=== PATIENT | female | born 1955 | race Caucasian/White ===

== ENCOUNTER 2016-06-28 14:04 | Inpatient (IN) | payer OTHER ==
[~2016-06-28] VITALS: Ht 152.4 cm; Wt 50.3 kg
[2016-06-28 15:28] LABS: HEMATOCRIT 34.7 % (36.0-46.0); MCH 29.4 PG (29.0-34.0); MCHC 33.7 G/DL (30.0-36.0); MCV 87.2 FL (83-99); MEAN PLAT.VOLUME 8.7 uM^3 (9.5-12.4); PLATELET COUNT 436 K/uL (156-360); RBC DIS.WIDTH-CV 12.1 % (11.8-14.6); RBC DIS.WIDTH-SD 37.5 % (39-53); RED BLOOD COUNT 3.98 M/uL (3.80-5.20); WHITE BLOOD COUNT 19.5 K/uL (4.1-10.2)
[2016-06-28 15:36] LABS: CHLORIDE 103 mEq/L (99-109); POTASSIUM 4.7 mEq/L (3.7-5.4); SODIUM 138 mEq/L (136-147)
[2016-06-28 15:38] LABS: GLUCOSE 186 mg/dL (70-99)
[2016-06-28 15:39] LABS: ANION GAP 14 MEQ/L (2-14)
[2016-06-28 15:40] LABS: TOTAL BILIRUBIN 0.3 mg/dL (0.0-1.0)
[2016-06-28 15:42] LABS: ALKALINE PHOSPHATASE 306 IU/L (3-129); GFR ESTIMATE (CALCULATED) 44 mL/min/
[2016-06-28 15:43] LABS: UREA NITROGEN (BUN) 31 mg/dL (9-23)
[2016-06-28 16:27] LABS: ADD MIUA? YES; BILIRUBIN SMALL; BLOOD NEGATIVE; COLOR YELLOW ((YELLOW)); GLUCOSE (STRIP) NEGATIVE; KETONES TRACE; LEUKOCYTES LARGE; NITRITE NEGATIVE; PROTEIN (STRIP) 30; SPECIFIC GRAVITY 1.021 (1.000-1.030); UROBILINOGEN 0.2 MG/DL (0.2-1.0)
[2016-06-28 17:19] LABS: AMORPHOUS URATES CRYSTALS RARE; BACTERIA 2+; CASTS PRESENT /LPF; CRYSTALS PRESENT; EPITHELIAL CELLS 1+; HYALINE CASTS 0-5 /LPF; MUCUS NONE SEEN; RED BLOOD CELLS 0-5 /HPF (0-5); UCUL ADDED? YES
[2016-06-28 17:35] LABS: TROP-I INTERPRETATION NEGATIVE; TROPONIN-I < 0.01 ng/mL (0.0-0.30)
[2016-06-28] MEDS ORDERED: PRILOSEC OTC20 MG PO (19:46)
[2016-06-28] MEDS ORDERED: CHOLESTEROL PO (19:46)
[2016-06-28] MEDS ORDERED: BLOOD PRESSURE PO (19:46)
[2016-06-28] MEDS ORDERED: METFORMIN HCL500 MG PO (19:46)
[2016-06-28] MEDS ORDERED: DIABETES MED PO (19:47)
[2016-06-28] MEDS ORDERED: TYLENOL EXTRA500 MG PO (19:47)
[2016-06-28 23:09] LABS: POINT-OF-CARE METER ID UU13113747
[2016-06-29 06:32] LABS: HEMATOCRIT 30.6 % (36.0-46.0); MCHC 33.3 G/DL (30.0-36.0); MCV 86.9 FL (83-99); MEAN PLAT.VOLUME 8.9 uM^3 (9.5-12.4); PLATELET COUNT 389 K/uL (156-360); RBC DIS.WIDTH-CV 12.3 % (11.8-14.6); RBC DIS.WIDTH-SD 37.6 % (39-53); RED BLOOD COUNT 3.52 M/uL (3.80-5.20); WHITE BLOOD COUNT 13.7 K/uL (4.1-10.2)
[2016-06-29 06:42] LABS: EOSINOPHIL (%) 5.5 % (0-5); EOSINOPHIL COUNT 0.8 K/uL (0-0.3); IMMATURE GRANULOCYTE (%) 0.2 % (0.0-0.7); IMMATURE GRANULOCYTE COUNT 0.3 K/uL; LYMPHOCYTE COUNT 1.9 K/uL (1.0-2.8); MONOCYTE (%) 7.9 % (3-12); MONOCYTE COUNT 1.1 K/uL (0-0.8); NEUTROPHIL (%) 72.1 % (45-76); NEUTROPHIL COUNT 9.9 K/uL (1.8-6.4)
[2016-06-29 06:47] LABS: CHLORIDE 104 mEq/L (99-109); POTASSIUM 4.9 mEq/L (3.7-5.4); SODIUM 139 mEq/L (136-147)
[2016-06-29 06:48] LABS: GLUCOSE 123 mg/dL (70-99)
[2016-06-29 06:50] LABS: ANION GAP 13 MEQ/L (2-14)
[2016-06-29 06:52] LABS: GFR ESTIMATE (CALCULATED) > 59 mL/min/
[2016-06-29 06:53] LABS: UREA NITROGEN (BUN) 32 mg/dL (9-23)
[2016-06-29] MEDS ORDERED: ZESTORETIC 20-1 EAC1 PO (09:22)
[2016-06-29] MEDS ORDERED: GLIMEPIRIDE2 MG PO (09:23)
[2016-06-29] MEDS ORDERED: LIPITOR80 MG PO (09:23)
[2016-06-29 09:30] LABS: INTER. NORMALIZED RATIO 1.2; PROTHROMBIN TIME 11.9 (9.2-11.2); PTT 31.4 (25-32)
[2016-06-29 09:30] LABS: POINT-OF-CARE METER ID UU14100415
[2016-06-29 18:30] VITALS: BP 101/42
[2016-06-29 19:37] VITALS: BP 103/49
[2016-06-29 22:44] LABS: POINT-OF-CARE METER ID UU13113725
[2016-06-30 00:21] VITALS: BP 106/54
[2016-06-30 07:14] LABS: HEMATOCRIT 31.9 % (36.0-46.0); MCH 28.1 PG (29.0-34.0); MCHC 32.3 G/DL (30.0-36.0); MCV 87.2 FL (83-99); MEAN PLAT.VOLUME 8.9 uM^3 (9.5-12.4); PLATELET COUNT 366 K/uL (156-360); RBC DIS.WIDTH-CV 12.5 % (11.8-14.6); RED BLOOD COUNT 3.66 M/uL (3.80-5.20); WHITE BLOOD COUNT 12.9 K/uL (4.1-10.2)
[2016-06-30 07:23] LABS: EOSINOPHIL (%) 6.2 % (0-5); EOSINOPHIL COUNT 0.8 K/uL (0-0.3); IMMATURE GRANULOCYTE (%) 0.3 % (0.0-0.7); LYMPHOCYTE COUNT 1.3 K/uL (1.0-2.8); MONOCYTE (%) 7.5 % (3-12); NEUTROPHIL (%) 76.1 % (45-76); NEUTROPHIL COUNT 9.9 K/uL (1.8-6.4)
[2016-06-30 08:35] VITALS: BP 120/58
[2016-06-30 12:10] VITALS: BP 134/76
[2016-06-30 16:43] VITALS: BP 120/56
[2016-06-30 21:11] LABS: POINT-OF-CARE METER ID UU13113725
[2016-06-30 22:52] VITALS: BP 92/50
[2016-07-01 07:20] LABS: HEMATOCRIT 32.5 % (36.0-46.0); MCH 29.5 PG (29.0-34.0); MCHC 33.5 G/DL (30.0-36.0); MCV 88.1 FL (83-99); MEAN PLAT.VOLUME 9.2 uM^3 (9.5-12.4); PLATELET COUNT 398 K/uL (156-360); RBC DIS.WIDTH-CV 12.5 % (11.8-14.6); RBC DIS.WIDTH-SD 40.1 % (39-53); RED BLOOD COUNT 3.69 M/uL (3.80-5.20); WHITE BLOOD COUNT 14.6 K/uL (4.1-10.2)
[2016-07-01 07:27] VITALS: BP 108/59
[2016-07-01 07:41] LABS: ANION GAP 12 MEQ/L (2-14); CHLORIDE 99 MEQ/L (99-109); GFR ESTIMATE (CALCULATED) > 59 mL/min/; GLUCOSE 156 mg/dL (70-99); POTASSIUM 4.4 MEQ/L (3.7-5.4); SAMPLE HEMOLYSIS CHECK 0; SAMPLE ICTERIC CHECK 0; SAMPLE LIPEMIA CHECK 0; SODIUM 137 MEQ/L (136-147); UREA NITROGEN (BUN) 13 mg/dL (9-23)
[2016-07-01 12:14] VITALS: BP 113/51
[2016-07-01 15:00] VITALS: BP 145/63
[2016-07-02 00:16] VITALS: BP 122/51
[2016-07-02] MEDS ORDERED: VENTOLIN HFA18 GM IH (12:27)
[2016-07-02] MEDS ORDERED: PROAIR HFA8.5 GM IH ×2 (14:17→15:08)
[2016-07-02] MEDS ORDERED: OXYCODONE-APAP1 EACH PO (15:08)
== END 2016-07-02 16:25 | disposition home or self-care (01) | DRG 181 ==
LOC: RME 14:04 → EME 14:04 → 5EAST 21:00 → EDOF 21:00 → 5EAST 06-29 18:26
PROVIDERS: Hospitalist; Internal Medicine; Nurse Practitioner Family; Radiology Diagnostic Radiology
PROC: 0FB03ZX Excision of Liver, Percutaneous Approach, Diagnostic (ICD-10-PCS; principal; 2016-06-29)
DX: C34.92 Malignant neoplasm of unspecified part of left bronchus or lung (principal); C78.7 Secondary malignant neoplasm of liver and intrahepatic bile duct; C79.2 Secondary malignant neoplasm of skin; C79.71 Secondary malignant neoplasm of right adrenal gland; C79.72 Secondary malignant neoplasm of left adrenal gland; C77.3 Secondary and unspecified malignant neoplasm of axilla and upper limb lymph nodes; R64 Cachexia; E11.9 Type 2 diabetes mellitus without complications; I10 Essential (primary) hypertension; F17.200 Nicotine dependence, unspecified, uncomplicated; D32.9 Benign neoplasm of meninges, unspecified; E78.00 Pure hypercholesterolemia, unspecified
CPT/HCPCS: 70450; 70553; 71020; 71260; 77012; 78306; 80048; 80053; 81003; 82565; 82948; 84484; 84520; 85025; 85027; 85610; 85730; 87070; 87075; 87086; 87205; 88305; 88341 TC; 88342 TC; 93005; 94640; 94640 76; 99202; 99281; 99285; A9503; J0696; J1644; J1815; J3010; J7030; J7050

== ENCOUNTER 2016-08-13 10:04 | Inpatient (IN) | payer OTHER ==
[~2016-08-13] VITALS: Ht 152.4 cm; Wt 45.4 kg
[~2016-08-13 10:04] MED LIST: BLOOD PRESSURE PO; CHOLESTEROL PO; DIABETES MED PO; GLIMEPIRIDE2 MG PO; LIPITOR80 MG PO; METFORMIN HCL500 MG PO; NORCO 5/3251 TABLET PO; OXYCODONE-APAP1 EACH PO; PRILOSEC OTC20 MG PO; PROAIR HFA8.5 GM IH; TYLENOL EXTRA500 MG PO; VENTOLIN HFA18 GM IH; ZESTORETIC 20-1 EAC1 PO; ZOFRAN4 MG PO
[2016-08-13 11:08] LABS: HEMATOCRIT 29.9 % (36.0-46.0); MCH 26.8 PG (29.0-34.0); MCHC 32.1 G/DL (30.0-36.0); MCV 83.5 FL (83-99); MEAN PLAT.VOLUME 9.6 uM^3 (9.5-12.4); PLATELET COUNT 281 K/uL (156-360); RBC DIS.WIDTH-CV 15.1 % (11.8-14.6); RBC DIS.WIDTH-SD 44.3 % (39-53); RED BLOOD COUNT 3.58 M/uL (3.80-5.20); WHITE BLOOD COUNT 25.8 K/uL (4.1-10.2)
[2016-08-13 11:13] VITALS: BP 101/64
[2016-08-13 11:26] LABS: CHLORIDE 93 mEq/L (99-109); POTASSIUM 4.8 mEq/L (3.7-5.4); SODIUM 126 mEq/L (136-147)
[2016-08-13 11:30] LABS: ANION GAP 15 MEQ/L (2-14); TOTAL BILIRUBIN 0.8 mg/dL (0.0-1.0)
[2016-08-13 11:34] LABS: ALKALINE PHOSPHATASE 493 IU/L (3-129); GFR ESTIMATE (CALCULATED) 53 mL/min/; GLUCOSE 491 mg/dL (70-99); UREA NITROGEN (BUN) 20 mg/dL (9-23)
[2016-08-13 12:47] LABS: POINT-OF-CARE METER ID UU14100415; POINT-OF-CARE USER ID NUTJLF39
[2016-08-13 13:24] LABS: ADD MIUA? YES; BILIRUBIN NEGATIVE; BLOOD NEGATIVE; COLOR YELLOW ((YELLOW)); GLUCOSE (STRIP) >=500; KETONES NEGATIVE; LEUKOCYTES TRACE; NITRITE NEGATIVE; PROTEIN (STRIP) NEGATIVE; SPECIFIC GRAVITY 1.026 (1.000-1.030); UROBILINOGEN 0.2 MG/DL (0.2-1.0)
[2016-08-13 13:31] LABS: BACTERIA NONE SEEN /HPF; EPITHELIAL CELLS RARE /HPF; MUCUS TRACE /LPF; RED BLOOD CELLS 0-5 /HPF (0-5); UCUL ADDED? NO; WHITE BLOOD CELLS 0-5 /HPF (0-5)
[2016-08-13 14:39] LABS: POINT-OF-CARE METER ID UU14100415
[2016-08-13] MEDS ORDERED: LIPITOR20 MG PO (17:38)
[2016-08-13 19:05] LABS: POINT-OF-CARE METER ID UU14100415
[2016-08-13 20:29] VITALS: BP 121/54
[2016-08-14] VITALS (8 sets, daily range): BP systolic 85–135; BP diastolic 44–61
[2016-08-14 07:19] LABS: ANION GAP 12 MEQ/L (2-14); GFR ESTIMATE (CALCULATED) > 59 mL/min/; POTASSIUM 3.9 MEQ/L (3.7-5.4); SAMPLE HEMOLYSIS CHECK 0; SAMPLE ICTERIC CHECK 0; SAMPLE LIPEMIA CHECK 0; SODIUM 132 MEQ/L (136-147); UREA NITROGEN (BUN) 21 mg/dL (9-23)
[2016-08-14 07:28] LABS: CHLORIDE 101 MEQ/L (99-109); GLUCOSE 75 mg/dL (70-99)
[2016-08-14 07:44] LABS: HEMATOCRIT 23.9 % (36.0-46.0); MCH 26.2 PG (29.0-34.0); MCHC 31.4 G/DL (30.0-36.0); MCV 83.6 FL (83-99); MEAN PLAT.VOLUME 9.2 uM^3 (9.5-12.4); PLATELET COUNT 229 K/uL (156-360); RBC DIS.WIDTH-CV 15.2 % (11.8-14.6); RBC DIS.WIDTH-SD 44.9 % (39-53); WHITE BLOOD COUNT 22.2 K/uL (4.1-10.2)
[2016-08-14 07:54] LABS: POINT-OF-CARE METER ID UU14174225
[2016-08-14 08:00] LABS: RED BLOOD COUNT 2.86 M/uL (3.80-5.20)
[2016-08-14 11:22] LABS: POINT-OF-CARE METER ID UU14188625
[2016-08-14 11:52] LABS: POINT-OF-CARE METER ID UU14174225
[2016-08-15] VITALS (12 sets, daily range): BP systolic 94–127; BP diastolic 48–71
[2016-08-15 02:33] LABS: POINT-OF-CARE METER ID UU14188625
[2016-08-15 10:47] LABS: ANION GAP 8 MEQ/L (2-14); CHLORIDE 105 MEQ/L (99-109); GFR ESTIMATE (CALCULATED) > 59 mL/min/; POTASSIUM 3.6 MEQ/L (3.7-5.4); SAMPLE HEMOLYSIS CHECK 0; SAMPLE ICTERIC CHECK 0; SAMPLE LIPEMIA CHECK 0; SODIUM 132 MEQ/L (136-147); UREA NITROGEN (BUN) 17 mg/dL (9-23)
[2016-08-15 10:52] LABS: GLUCOSE 117 mg/dL (70-99)
[2016-08-15 10:53] LABS: HEMATOCRIT 22.2 % (36.0-46.0); MCH 26.5 PG (29.0-34.0); MCHC 30.6 G/DL (30.0-36.0); MCV 86.4 FL (83-99); MEAN PLAT.VOLUME 9.5 uM^3 (9.5-12.4); PLATELET COUNT 221 K/uL (156-360); RBC DIS.WIDTH-CV 15.8 % (11.8-14.6); RED BLOOD COUNT 2.57 M/uL (3.80-5.20); WHITE BLOOD COUNT 18.7 K/uL (4.1-10.2)
[2016-08-16] VITALS: BP 108/55
[2016-08-16 04:00] VITALS: BP 103/55
[2016-08-16 07:47] VITALS: BP 103/53
[2016-08-16 09:05] LABS: HEMATOCRIT 29.9 % (36.0-46.0); MCH 26.6 PG (29.0-34.0); MCHC 31.4 G/DL (30.0-36.0); MCV 84.7 FL (83-99); MEAN PLAT.VOLUME 9.1 uM^3 (9.5-12.4); PLATELET COUNT 282 K/uL (156-360); RBC DIS.WIDTH-CV 15.5 % (11.8-14.6); RBC DIS.WIDTH-SD 47.7 % (39-53); WHITE BLOOD COUNT 19.9 K/uL (4.1-10.2)
[2016-08-16 09:10] LABS: ALKALINE PHOSPHATASE 560 IU/L (3-129); ANION GAP 10 MEQ/L (2-14); CHLORIDE 103 MEQ/L (99-109); GFR ESTIMATE (CALCULATED) > 59 mL/min/; GLUCOSE 121 mg/dL (70-99); POTASSIUM 3.8 MEQ/L (3.7-5.4); RED BLOOD COUNT 3.53 M/uL (3.80-5.20); SAMPLE HEMOLYSIS CHECK 0; SAMPLE ICTERIC CHECK 0; SAMPLE LIPEMIA CHECK 0; SODIUM 133 MEQ/L (136-147); UREA NITROGEN (BUN) 16 mg/dL (9-23)
[2016-08-16 11:26] VITALS: BP 84/62
[2016-08-16] MEDS ORDERED: AUGMENTIN875 MG PO (14:30)
[2016-08-21 08:33] LABS: POINT-OF-CARE METER ID UU14188625
[2016-08-21 08:43] LABS: POINT-OF-CARE METER ID UU13113778
== END 2016-08-16 16:23 | disposition home or self-care (01) | DRG 871 ==
LOC: EME 10:04 → 5SOUTH 17:29 → EDOF 17:29 → 5SOUTH 20:22
PROVIDERS: Emergency Medicine; Internal Medicine
PROC: 30233N1 Transfusion of Nonautologous Red Blood Cells into Peripheral Vein, Percutaneous Approach (ICD-10-PCS; principal; 2016-08-15)
DX: A41.9 Sepsis, unspecified organism (principal); E13.10 Other specified diabetes mellitus with ketoacidosis without coma; B37.0 Candidal stomatitis; C34.32 Malignant neoplasm of lower lobe, left bronchus or lung; C78.7 Secondary malignant neoplasm of liver and intrahepatic bile duct; Z66 Do not resuscitate; Z91.128 Patient's intentional underdosing of medication regimen for other reason; F41.9 Anxiety disorder, unspecified; J98.4 Other disorders of lung; D64.9 Anemia, unspecified; D49.6 Neoplasm of unspecified behavior of brain; I10 Essential (primary) hypertension; K21.9 Gastro-esophageal reflux disease without esophagitis; E78.5 Hyperlipidemia, unspecified; Z85.41 Personal history of malignant neoplasm of cervix uteri; Z79.84 Long term (current) use of oral hypoglycemic drugs; Z87.891 Personal history of nicotine dependence; Z80.49 Family history of malignant neoplasm of other genital organs
CPT/HCPCS: 71020; 80048; 80053; 81003; 82010; 82947 91; 82948; 83605; 85025; 85027; 86850; 86870; 86900; 86901; 86905; 86920; 87040; 94640; 94799; 99202; 99281; 99285; J1650; J1815; J2270; J2543; J3370; J7030; J7050; P9016

== ENCOUNTER 2016-08-19 05:16 | Inpatient (IN) | payer OTHER ==
[~2016-08-19] VITALS: Ht 152.4 cm; Wt 57.2 kg
[~2016-08-19 05:16] MED LIST changes: +AUGMENTIN875 MG PO; +LIPITOR20 MG PO
[2016-08-19 05:49] LABS: BASOPHIL COUNT 0.1 K/uL (0-0.1); EOSINOPHIL (%) 4.6 % (0-5); EOSINOPHIL COUNT 0.9 K/uL (0-0.3); IMMATURE GRANULOCYTE (%) 1.6 % (0.0-0.7); IMMATURE GRANULOCYTE COUNT 0.3 K/uL; INSTRUMENT ABS NEUTROPHIL CT 15.7 K/uL; LYMPHOCYTE COUNT 1.2 K/uL (1.0-2.8); MCH 26.4 PG (29.0-34.0); MCHC 31.8 G/DL (30.0-36.0); MCV 83.1 FL (83-99); MEAN PLAT.VOLUME 8.9 uM^3 (9.5-12.4); MONOCYTE (%) 7.1 % (3-12); MONOCYTE COUNT 1.4 K/uL (0-0.8); NEUTROPHIL (%) 80.2 % (45-76); NEUTROPHIL COUNT 15.7 K/uL (1.8-6.4); PLATELET COUNT 249 K/uL (156-360); RBC DIS.WIDTH-CV 15.4 % (11.8-14.6); RBC DIS.WIDTH-SD 46.5 % (39-53); RED BLOOD COUNT 3.97 M/uL (3.80-5.20); WHITE BLOOD COUNT 19.6 K/uL (4.1-10.2)
[2016-08-19 05:57] LABS: CHLORIDE 102 mEq/L (99-109); POTASSIUM 3.8 mEq/L (3.7-5.4); SODIUM 136 mEq/L (136-147)
[2016-08-19 05:59] LABS: GLUCOSE 163 mg/dL (70-99)
[2016-08-19 06:01] LABS: ANION GAP 14 MEQ/L (2-14); TOTAL BILIRUBIN 0.8 mg/dL (0.0-1.0)
[2016-08-19 06:03] LABS: GFR ESTIMATE (CALCULATED) > 59 mL/min/
[2016-08-19 06:04] LABS: ALKALINE PHOSPHATASE 787 IU/L (3-129); UREA NITROGEN (BUN) 9 mg/dL (9-23)
[2016-08-19 06:09] LABS: TROP-I INTERPRETATION NEGATIVE; TROPONIN-I 0.04 ng/mL (0.0-0.30)
[2016-08-19 07:41] LABS: ADD MIUA? YES; BILIRUBIN NEGATIVE; BLOOD NEGATIVE; COLOR YELLOW ((YELLOW)); GLUCOSE (STRIP) NEGATIVE; KETONES NEGATIVE; LEUKOCYTES SMALL; NITRITE NEGATIVE; PROTEIN (STRIP) 30; SPECIFIC GRAVITY 1.023 (1.000-1.030); UROBILINOGEN 0.2 MG/DL (0.2-1.0)
[2016-08-19 07:51] LABS: BACTERIA RARE /HPF; EPITHELIAL CELLS 2+ /HPF; MUCUS TRACE /LPF; RED BLOOD CELLS 0-5 /HPF (0-5); UCUL ADDED? NO; WHITE BLOOD CELLS NONE SEEN /HPF (0-5)
[2016-08-19] MEDS ORDERED: AUGMENTIN875 MG PO (09:21)
[2016-08-19] MEDS ORDERED: TYLENOL EXTRA500 MG PO (09:22)
[2016-08-19] MEDS ORDERED: MORPHINE SULFAT15 M1 PO (09:22)
[2016-08-19] MEDS ORDERED: PERCOCET 10/1 TABLET PO (09:23)
[2016-08-19 14:11] VITALS: BP 115/63
[2016-08-19 14:51] LABS: TROP-I INTERPRETATION NEGATIVE; TROPONIN-I 0.04 ng/mL (0.0-0.30)
[2016-08-19 16:30] VITALS: BP 109/55
[2016-08-19 17:12] LABS: POINT-OF-CARE USER ID NUTSLF44
[2016-08-19 19:41] VITALS: BP 109/76
[2016-08-19 23:09] LABS: TROP-I INTERPRETATION NEGATIVE; TROPONIN-I 0.03 ng/mL (0.0-0.30)
[2016-08-20 00:14] VITALS: BP 113/55
[2016-08-20 04:38] VITALS: BP 117/59
[2016-08-20 07:00] VITALS: BP 119/57
[2016-08-20 07:15] LABS: ANION GAP 9 MEQ/L (2-14); CHLORIDE 101 MEQ/L (99-109); GFR ESTIMATE (CALCULATED) > 59 mL/min/; POTASSIUM 4.3 MEQ/L (3.7-5.4); SAMPLE HEMOLYSIS CHECK 0; SAMPLE ICTERIC CHECK 0; SAMPLE LIPEMIA CHECK 0; SODIUM 134 MEQ/L (136-147); UREA NITROGEN (BUN) 14 mg/dL (9-23)
[2016-08-20 07:16] LABS: GLUCOSE 355 mg/dL (70-99)
[2016-08-20 11:15] VITALS: BP 104/54
[2016-08-20 11:37] LABS: POINT-OF-CARE METER ID UU13113698
[2016-08-20 11:56] LABS: HEMATOCRIT 27.6 % (36.0-46.0); MCH 26.5 PG (29.0-34.0); MCHC 31.2 G/DL (30.0-36.0); MCV 84.9 FL (83-99); MEAN PLAT.VOLUME 9.8 uM^3 (9.5-12.4); PLATELET COUNT 282 K/uL (156-360); RBC DIS.WIDTH-CV 15.5 % (11.8-14.6); RED BLOOD COUNT 3.25 M/uL (3.80-5.20); WHITE BLOOD COUNT 20.3 K/uL (4.1-10.2)
[2016-08-20 17:00] VITALS: BP 114/58
[2016-08-20 19:02] VITALS: BP 132/67
[2016-08-21] VITALS (7 sets, daily range): BP systolic 111–123; BP diastolic 56–60
[2016-08-21 06:46] LABS: HEMATOCRIT 35.7 % (36.0-46.0); MCHC 30.3 G/DL (30.0-36.0); MEAN PLAT.VOLUME 8.9 uM^3 (9.5-12.4); NRBC (%) 0.1 /100 WBC (0-0); RBC DIS.WIDTH-CV 15.9 % (11.8-14.6); WHITE BLOOD COUNT 18.9 K/uL (4.1-10.2)
[2016-08-21 07:02] LABS: ANION GAP 11 MEQ/L (2-14); CHLORIDE 102 MEQ/L (99-109); GFR ESTIMATE (CALCULATED) > 59 mL/min/; SAMPLE HEMOLYSIS CHECK 0; SAMPLE ICTERIC CHECK 0; SAMPLE LIPEMIA CHECK 0; SODIUM 137 MEQ/L (136-147); UREA NITROGEN (BUN) 17 mg/dL (9-23)
[2016-08-21 07:05] LABS: GLUCOSE 128 mg/dL (70-99)
[2016-08-21 07:22] LABS: PLATELET COUNT 483 K/uL (156-360); RED BLOOD COUNT 4.15 M/uL (3.80-5.20)
[2016-08-22 03:52] VITALS: BP 130/75
[2016-08-22 07:35] LABS: POINT-OF-CARE METER ID UU13113698
[2016-08-22 08:00] VITALS: BP 116/68
[2016-08-22 11:19] VITALS: BP 120/67
[2016-08-22 11:23] LABS: POINT-OF-CARE METER ID UU13113698
[2016-08-22] MEDS ORDERED: XARELTO15 MG PO (13:12)
[2016-09-02] MEDS ORDERED: ATORVASTATIN CA20 MG PO (11:56)
[2016-09-02] MEDS ORDERED: ZESTORETIC 20-1 EAC1 PO (11:56)
== END 2016-08-22 15:46 | disposition home health service (06) | DRG 175 ==
LOC: EME → EDBD 05:16 → EME 05:16 → EDOF 09:27 → 4EAST 09:53 → EDOF 11:52 → 4EAST 13:44
PROVIDERS: Emergency Medicine; Internal Medicine
DX: I26.99 Other pulmonary embolism without acute cor pulmonale (principal); J18.9 Pneumonia, unspecified organism; J96.90 Respiratory failure, unspecified, unspecified whether with hypoxia or hypercapnia; C34.90 Malignant neoplasm of unspecified part of unspecified bronchus or lung; I51.3 Intracardiac thrombosis, not elsewhere classified; I82.413 Acute embolism and thrombosis of femoral vein, bilateral; C79.89 Secondary malignant neoplasm of other specified sites; J98.11 Atelectasis; I10 Essential (primary) hypertension; D64.9 Anemia, unspecified; E78.5 Hyperlipidemia, unspecified; E11.9 Type 2 diabetes mellitus without complications; J44.9 Chronic obstructive pulmonary disease, unspecified; K21.9 Gastro-esophageal reflux disease without esophagitis; E78.00 Pure hypercholesterolemia, unspecified; Z66 Do not resuscitate; Z85.41 Personal history of malignant neoplasm of cervix uteri; Z87.891 Personal history of nicotine dependence; Z79.84 Long term (current) use of oral hypoglycemic drugs; Z79.899 Other long term (current) drug therapy
CPT/HCPCS: 71020; 71275; 80048; 80053; 81003; 82948; 83880; 84484; 85025; 85027; 93005; 93306; 93970; 94640; 94640 76; 94760; 94799; 99202; 99281; 99285; J1650; J1815; J2270; J2930; J7030; J7644

== ENCOUNTER 2016-12-23 09:51 | Inpatient (IN) | payer OTHER ==
[~2016-12-23] VITALS: Ht 152.4 cm; Wt 54.7 kg
[~2016-12-23 09:51] MED LIST changes: +ATORVASTATIN CA20 MG PO; +MORPHINE SULFAT15 M1 PO; +PERCOCET 10/1 TABLET PO; +XARELTO15 MG PO
[2016-12-23 10:09] LABS: POINT-OF-CARE METER ID UU13113778
[2016-12-23 10:36] LABS: MCH 28.1 PG (29.0-34.0); MCHC 34.1 G/DL (30.0-36.0); MCV 82.3 FL (83-99); MEAN PLAT.VOLUME 8.9 uM^3 (9.5-12.4); PLATELET COUNT 209 K/uL (156-360); RBC DIS.WIDTH-CV 13.3 % (11.8-14.6); RBC DIS.WIDTH-SD 40.1 % (39-53); RED BLOOD COUNT 4.13 M/uL (3.80-5.20); WHITE BLOOD COUNT 4.8 K/uL (4.1-10.2)
[2016-12-23 10:48] LABS: CHLORIDE 102 mEq/L (99-109); POTASSIUM 3.6 mEq/L (3.7-5.4)
[2016-12-23 10:49] LABS: SODIUM 136 mEq/L (136-147)
[2016-12-23 10:51] LABS: GLUCOSE 214 mg/dL (70-99)
[2016-12-23 10:52] LABS: ANION GAP 12 MEQ/L (2-14)
[2016-12-23 10:53] LABS: TOTAL BILIRUBIN 0.7 mg/dL (0.0-1.0)
[2016-12-23 10:54] LABS: ALKALINE PHOSPHATASE 186 IU/L (3-129); GFR ESTIMATE (CALCULATED) 53 mL/min/
[2016-12-23 10:56] LABS: UREA NITROGEN (BUN) 31 mg/dL (9-23)
[2016-12-23 10:58] LABS: LIPASE 16 U/L (1.0-51.0)
[2016-12-23 13:31] LABS: ADD MIUA? YES; BILIRUBIN NEGATIVE; BLOOD NEGATIVE; COLOR YELLOW ((YELLOW)); GLUCOSE (STRIP) NEGATIVE; KETONES NEGATIVE; LEUKOCYTES LARGE; NITRITE NEGATIVE; PROTEIN (STRIP) NEGATIVE; SPECIFIC GRAVITY 1.036 (1.000-1.030); UROBILINOGEN 0.2 MG/DL (0.2-1.0)
[2016-12-23 14:06] LABS: BACTERIA RARE /HPF; EPITHELIAL CELLS RARE /HPF; GRANULAR CASTS 0-5 /LPF; MUCUS TRACE /LPF; RED BLOOD CELLS 0-5 /HPF (0-5); UCUL ADDED? NO; WHITE BLOOD CELLS 20-30 /HPF (0-5)
[2016-12-23] MEDS ORDERED: METFORMIN HCL750 MG PO (14:10)
[2016-12-23] MEDS ORDERED: MORPHINE SULFAT15 M1 PO (14:12)
[2016-12-23] MEDS ORDERED: XARELTO20 MG PO (14:13)
[2016-12-23] MEDS ORDERED: STOOL SOFTENER100 MG PO (14:13)
[2016-12-23] MEDS ORDERED: HYDROCHLOROTHIA25 MG PO (14:13)
[2016-12-23] MEDS ORDERED: GLIMEPIRIDE4 MG PO (14:13)
[2016-12-23 19:58] VITALS: BP 114/67
[2016-12-23 20:26] VITALS: BP 103/57
[2016-12-23 20:48] LABS: POINT-OF-CARE METER ID UU13113725
[2016-12-23 23:40] VITALS: BP 98/46
[2016-12-24 03:43] VITALS: BP 98/43
[2016-12-24 06:12] LABS: POINT-OF-CARE METER ID UU13113725
[2016-12-24 07:08] LABS: HEMATOCRIT 29.1 % (36.0-46.0); MCH 27.5 PG (29.0-34.0); MCHC 32.6 G/DL (30.0-36.0); MCV 84.1 FL (83-99); MEAN PLAT.VOLUME 8.6 uM^3 (9.5-12.4); PLATELET COUNT 202 K/uL (156-360); RBC DIS.WIDTH-CV 13.9 % (11.8-14.6); RBC DIS.WIDTH-SD 42.4 % (39-53); RED BLOOD COUNT 3.46 M/uL (3.80-5.20); WHITE BLOOD COUNT 4.3 K/uL (4.1-10.2)
[2016-12-24 07:24] LABS: ALKALINE PHOSPHATASE 161 IU/L (3-129); ANION GAP 11 MEQ/L (2-14); CHLORIDE 108 MEQ/L (99-109); GFR ESTIMATE (CALCULATED) > 59 mL/min/; GLUCOSE 121 mg/dL (70-99); POTASSIUM 3.5 MEQ/L (3.7-5.4); SAMPLE HEMOLYSIS CHECK 0; SAMPLE ICTERIC CHECK 0; SAMPLE LIPEMIA CHECK 0; SODIUM 140 MEQ/L (136-147); TOTAL BILIRUBIN 0.6 MG/DL (0.0-1.0); UREA NITROGEN (BUN) 13 mg/dL (9-23)
[2016-12-24 07:40] VITALS: BP 90/60
[2016-12-24 11:24] LABS: POINT-OF-CARE METER ID UU13113725
[2016-12-24 11:39] VITALS: BP 125/69
[2016-12-24 15:50] VITALS: BP 105/50
[2016-12-24 16:21] LABS: POINT-OF-CARE METER ID UU13113725
[2016-12-24 23:48] VITALS: BP 128/65
[2016-12-25 05:05] VITALS: BP 120/58
[2016-12-25 06:27] LABS: POINT-OF-CARE METER ID UU13113725
[2016-12-25 06:59] LABS: ALKALINE PHOSPHATASE 160 IU/L (3-129); ANION GAP 12 MEQ/L (2-14); CHLORIDE 109 MEQ/L (99-109); DIRECT BILIRUBIN 0.1 mg/dL (0.0-0.3); GFR ESTIMATE (CALCULATED) > 59 mL/min/; GLUCOSE 103 mg/dL (70-99); POTASSIUM 3.8 MEQ/L (3.7-5.4); SAMPLE HEMOLYSIS CHECK 1; SAMPLE ICTERIC CHECK 0; SAMPLE LIPEMIA CHECK 0; SODIUM 139 MEQ/L (136-147); TOTAL BILIRUBIN 0.7 MG/DL (0.0-1.0); UREA NITROGEN (BUN) 5 mg/dL (9-23)
[2016-12-25 07:11] VITALS: BP 118/65
[2016-12-25 09:05] LABS: EOSINOPHIL (%) 8.2 % (0-5); EOSINOPHIL COUNT 0.3 K/uL (0-0.3); HEMATOCRIT 28.8 % (36.0-46.0); IMMATURE GRANULOCYTE (%) 0.2 % (0.0-0.7); INSTRUMENT ABS NEUTROPHIL CT 2.1 K/uL; LYMPHOCYTE COUNT 1.1 K/uL (1.0-2.8); MCH 29.1 PG (29.0-34.0); MCHC 35.1 G/DL (30.0-36.0); MEAN PLAT.VOLUME 8.8 uM^3 (9.5-12.4); MONOCYTE (%) 13.3 % (3-12); MONOCYTE COUNT 0.6 K/uL (0-0.8); NEUTROPHIL (%) 51.5 % (45-76); NEUTROPHIL COUNT 2.1 K/uL (1.8-6.4); PLATELET COUNT 186 K/uL (156-360); RBC DIS.WIDTH-CV 13.6 % (11.8-14.6); RBC DIS.WIDTH-SD 40.6 % (39-53); RED BLOOD COUNT 3.47 M/uL (3.80-5.20); WHITE BLOOD COUNT 4.1 K/uL (4.1-10.2)
[2016-12-25 11:01] VITALS: BP 124/58
[2016-12-25 11:16] LABS: POINT-OF-CARE METER ID UU13113725
== END 2016-12-25 14:55 | disposition home or self-care (01) | DRG 690 ==
LOC: EME 09:51 → EDOF 16:24 → 5EAST 16:24
PROVIDERS: Emergency Medicine; Internal Medicine; Student in an Organized Health Care Education/Training Program
DX: N39.0 Urinary tract infection, site not specified (principal); E27.8 Other specified disorders of adrenal gland; C78.7 Secondary malignant neoplasm of liver and intrahepatic bile duct; C34.90 Malignant neoplasm of unspecified part of unspecified bronchus or lung; E86.0 Dehydration; I10 Essential (primary) hypertension; Z85.41 Personal history of malignant neoplasm of cervix uteri; J44.9 Chronic obstructive pulmonary disease, unspecified; Z79.84 Long term (current) use of oral hypoglycemic drugs; E11.9 Type 2 diabetes mellitus without complications; E78.5 Hyperlipidemia, unspecified; Z86.711 Personal history of pulmonary embolism; I70.8 Atherosclerosis of other arteries; K21.9 Gastro-esophageal reflux disease without esophagitis; Z79.899 Other long term (current) drug therapy; Z80.49 Family history of malignant neoplasm of other genital organs; Z87.891 Personal history of nicotine dependence; R10.10 Upper abdominal pain, unspecified; R11.2 Nausea with vomiting, unspecified; R74.8 Abnormal levels of other serum enzymes; Z03.89 Encounter for observation for other suspected diseases and conditions ruled out; Z86.718 Personal history of other venous thrombosis and embolism; Z79.01 Long term (current) use of anticoagulants
CPT/HCPCS: 74177; 74183; 80048; 80053; 80076; 81003; 82948; 83605; 83690; 84520; 85025; 85027; 87040; 99202; 99281; 99285; C9113; J1815; J2270; J2405; J2543; J2765; J7030; J7050

== ENCOUNTER 2017-01-02 19:43 | Observation (INO) | payer OTHER ==
[~2017-01-02] VITALS: Ht 152.4 cm; Wt 52.4 kg
[~2017-01-02 19:43] MED LIST changes: +GLIMEPIRIDE4 MG PO; +HYDROCHLOROTHIA25 MG PO; +METFORMIN HCL750 MG PO; +STOOL SOFTENER100 MG PO; +XARELTO20 MG PO
[2017-01-02 20:14] LABS: HEMATOCRIT 38.4 % (36.0-46.0); MCH 28.4 PG (29.0-34.0); MCHC 33.6 G/DL (30.0-36.0); MCV 84.4 FL (83-99); MEAN PLAT.VOLUME 8.6 uM^3 (9.5-12.4); PLATELET COUNT 284 K/uL (156-360); RBC DIS.WIDTH-CV 14.8 % (11.8-14.6); RBC DIS.WIDTH-SD 45.3 % (39-53); RED BLOOD COUNT 4.55 M/uL (3.80-5.20); WHITE BLOOD COUNT 5.7 K/uL (4.1-10.2)
[2017-01-02 20:22] LABS: CHLORIDE 100 mEq/L (99-109); POTASSIUM 3.3 mEq/L (3.7-5.4); SODIUM 138 mEq/L (136-147)
[2017-01-02 20:24] LABS: GLUCOSE 59 mg/dL (70-99)
[2017-01-02 20:25] LABS: ANION GAP 14 MEQ/L (2-14)
[2017-01-02 20:26] LABS: TOTAL BILIRUBIN 0.9 mg/dL (0.0-1.0)
[2017-01-02 20:27] LABS: ALKALINE PHOSPHATASE 187 IU/L (3-129)
[2017-01-02 20:28] LABS: GFR ESTIMATE (CALCULATED) 32 mL/min/
[2017-01-02 20:29] LABS: UREA NITROGEN (BUN) 27 mg/dL (9-23)
[2017-01-02 20:31] LABS: LIPASE 12 U/L (1.0-51.0)
[2017-01-02 22:30] LABS: ADD MIUA? YES; BILIRUBIN NEGATIVE; BLOOD NEGATIVE; COLOR YELLOW ((YELLOW)); GLUCOSE (STRIP) NEGATIVE; KETONES NEGATIVE; LEUKOCYTES LARGE; NITRITE NEGATIVE; PROTEIN (STRIP) 30; SPECIFIC GRAVITY 1.018 (1.000-1.030); UROBILINOGEN 0.2 MG/DL (0.2-1.0)
[2017-01-02 22:37] LABS: BACTERIA RARE /HPF; EPITHELIAL CELLS RARE /HPF; HYALINE CASTS 40-50 /LPF; MUCUS TRACE /LPF; UCUL ADDED? NO; WHITE BLOOD CELLS 20-30 /HPF (0-5)
[2017-01-02 22:53] LABS: TROP-I INTERPRETATION NEGATIVE; TROPONIN-I < 0.01 ng/mL (0.0-0.30)
[2017-01-03] MEDS ORDERED: KEYTRUDA50 MG IV (00:14)
[2017-01-03 02:13] LABS: POINT-OF-CARE METER ID UU14100415
[2017-01-03 02:16] LABS: EOSINOPHIL (%) 6.4 % (0-5); EOSINOPHIL COUNT 0.3 K/uL (0-0.3); IMMATURE GRANULOCYTE (%) 0.5 % (0.0-0.7); INSTRUMENT ABS NEUTROPHIL CT 2.4 K/uL; LYMPHOCYTE COUNT 1.1 K/uL (1.0-2.8); MCH 27.6 PG (29.0-34.0); MCHC 32.4 G/DL (30.0-36.0); MCV 85.4 FL (83-99); MEAN PLAT.VOLUME 8.6 uM^3 (9.5-12.4); MONOCYTE COUNT 0.4 K/uL (0-0.8); NEUTROPHIL (%) 57.8 % (45-76); NEUTROPHIL COUNT 2.4 K/uL (1.8-6.4); PLATELET COUNT 226 K/uL (156-360); RBC DIS.WIDTH-CV 14.6 % (11.8-14.6); RBC DIS.WIDTH-SD 45.8 % (39-53); RED BLOOD COUNT 3.98 M/uL (3.80-5.20); WHITE BLOOD COUNT 4.2 K/uL (4.1-10.2)
[2017-01-03 02:22] LABS: INTER. NORMALIZED RATIO 1.4; PROTHROMBIN TIME 15.4 SEC (10.2-12.9)
[2017-01-03 02:26] LABS: CHLORIDE 105 mEq/L (99-109); POTASSIUM 3.3 mEq/L (3.7-5.4); SODIUM 140 mEq/L (136-147)
[2017-01-03 02:29] LABS: ANION GAP 10 MEQ/L (2-14)
[2017-01-03 02:31] LABS: ALKALINE PHOSPHATASE 160 IU/L (3-129)
[2017-01-03 02:32] LABS: GFR ESTIMATE (CALCULATED) 44 mL/min/
[2017-01-03 02:33] LABS: UREA NITROGEN (BUN) 24 mg/dL (9-23)
[2017-01-03 02:36] LABS: GLUCOSE 87 mg/dL (70-99); TOTAL BILIRUBIN 0.6 mg/dL (0.0-1.0)
[2017-01-03 02:54] LABS: ERTH.SED.RATE 28 MM/HR (0-30)
[2017-01-03 03:00] VITALS: BP 103/51
[2017-01-03 04:00] VITALS: BP 103/44
[2017-01-03 04:37] LABS: POINT-OF-CARE METER ID UU13113781
[2017-01-03 06:31] LABS: POINT-OF-CARE METER ID UU13113781
[2017-01-03 08:07] LABS: POINT-OF-CARE METER ID UU13113781
[2017-01-03 08:19] VITALS: BP 93/46
[2017-01-03 08:26] LABS: EOSINOPHIL (%) 6.7 % (0-5); EOSINOPHIL COUNT 0.2 K/uL (0-0.3); HEMATOCRIT 27.6 % (36.0-46.0); IMMATURE GRANULOCYTE (%) 0.6 % (0.0-0.7); INSTRUMENT ABS NEUTROPHIL CT 1.9 K/uL; LYMPHOCYTE COUNT 0.9 K/uL (1.0-2.8); MCH 27.8 PG (29.0-34.0); MCV 84.4 FL (83-99); MEAN PLAT.VOLUME 8.9 uM^3 (9.5-12.4); MONOCYTE (%) 14.8 % (3-12); MONOCYTE COUNT 0.5 K/uL (0-0.8); NEUTROPHIL (%) 52.4 % (45-76); NEUTROPHIL COUNT 1.9 K/uL (1.8-6.4); PLATELET COUNT 207 K/uL (156-360); RBC DIS.WIDTH-CV 14.4 % (11.8-14.6); RBC DIS.WIDTH-SD 44.3 % (39-53); RED BLOOD COUNT 3.27 M/uL (3.80-5.20); WHITE BLOOD COUNT 3.6 K/uL (4.1-10.2)
[2017-01-03 09:02] LABS: ANION GAP 8 MEQ/L (2-14); CHLORIDE 105 MEQ/L (99-109); GFR ESTIMATE (CALCULATED) > 59 mL/min/; POTASSIUM 3.5 MEQ/L (3.7-5.4); SAMPLE HEMOLYSIS CHECK 0; SAMPLE ICTERIC CHECK 0; SAMPLE LIPEMIA CHECK 0; SODIUM 138 MEQ/L (136-147); UREA NITROGEN (BUN) 22 mg/dL (9-23)
[2017-01-03 09:08] LABS: GLUCOSE 220 mg/dL (70-99)
[2017-01-03 10:12] LABS: POINT-OF-CARE METER ID UU13113781
[2017-01-03 11:52] VITALS: BP 113/52
[2017-01-03 12:09] LABS: POINT-OF-CARE METER ID UU13113698
[2017-01-03 14:34] LABS: C DIFF TOXIN NEGATIVE (NEGATIVE)
[2017-01-03 14:37] LABS: PROBE CHECK PASS; SPECIMEN PROCESSING CONTROL PASS
[2017-01-03 16:47] LABS: POINT-OF-CARE METER ID UU13113781
[2017-01-03 18:51] LABS: POINT-OF-CARE METER ID UU14100415
[2017-01-03 21:23] VITALS: BP 116/53
[2017-01-04 00:34] VITALS: BP 96/54
[2017-01-04 04:00] VITALS: BP 104/68
[2017-01-04 06:09] LABS: HEMATOCRIT 28.5 % (36.0-46.0); MCH 28.6 PG (29.0-34.0); MCV 84.1 FL (83-99); MEAN PLAT.VOLUME 8.9 uM^3 (9.5-12.4); PLATELET COUNT 222 K/uL (156-360); RBC DIS.WIDTH-CV 14.6 % (11.8-14.6); RBC DIS.WIDTH-SD 44.7 % (39-53); RED BLOOD COUNT 3.39 M/uL (3.80-5.20); WHITE BLOOD COUNT 3.6 K/uL (4.1-10.2)
[2017-01-04 06:46] LABS: ANION GAP 6 MEQ/L (2-14); CHLORIDE 105 MEQ/L (99-109); GFR ESTIMATE (CALCULATED) > 59 mL/min/; POTASSIUM 3.7 MEQ/L (3.7-5.4); SAMPLE HEMOLYSIS CHECK 0; SAMPLE ICTERIC CHECK 0; SAMPLE LIPEMIA CHECK 0; SODIUM 139 MEQ/L (136-147); UREA NITROGEN (BUN) 11 mg/dL (9-23)
[2017-01-04 06:47] LABS: GLUCOSE 95 mg/dL (70-99)
[2017-01-04 07:45] VITALS: BP 119/68
[2017-01-04 08:16] LABS: POINT-OF-CARE METER ID UU13113698
[2017-01-04] MEDS ORDERED: PREDNISONE20 MG PO (08:52)
== END 2017-01-04 12:16 | disposition home or self-care (01) ==
LOC: EME 19:43 → EDOF 01-03 00:50 → 4EAST 01-03 00:50 → EDOF 01-03 00:50 → ENRESERV 01-03 00:52 → 4EAST 01-03 02:35 → ENPENDDIS 01-04 → 4EAST 01-04 12:16
PROVIDERS: Hospitalist; Internal Medicine; Physician Assistant Medical
DX: E27.40 Unspecified adrenocortical insufficiency (principal); R65.10 Systemic inflammatory response syndrome (SIRS) of non-infectious origin without acute organ dysfunction; T68.XXXA Hypothermia, initial encounter; E16.2 Hypoglycemia, unspecified; N17.9 Acute kidney failure, unspecified; R11.10 Vomiting, unspecified; C34.90 Malignant neoplasm of unspecified part of unspecified bronchus or lung; C78.7 Secondary malignant neoplasm of liver and intrahepatic bile duct; D49.6 Neoplasm of unspecified behavior of brain; L40.9 Psoriasis, unspecified; Z86.718 Personal history of other venous thrombosis and embolism; Z86.711 Personal history of pulmonary embolism; Z79.01 Long term (current) use of anticoagulants; E11.9 Type 2 diabetes mellitus without complications; J44.9 Chronic obstructive pulmonary disease, unspecified; K21.9 Gastro-esophageal reflux disease without esophagitis; Z87.440 Personal history of urinary (tract) infections; Z92.21 Personal history of antineoplastic chemotherapy; Z79.84 Long term (current) use of oral hypoglycemic drugs; Z79.891 Long term (current) use of opiate analgesic; Z87.891 Personal history of nicotine dependence
CPT/HCPCS: 70450; 71010; 74176; 80048; 80048 91; 80053; 81003; 82533 91; 82948; 83605; 83690; 84443; 84484; 85025; 85025 91; 85027; 85610; 85651; 87040; 87493; 93005; 99202; 99281; 99285; G0378; G8978 GP CI; G8979 GP CH; G8987 GO CI; G8988 GO CH; J0696; J1815; J3480; J7030; J7042; J7050; J7512

== ENCOUNTER 2017-05-21 12:25 | Emergency (ER) | payer OTHER ==
[~2017-05-21] VITALS: Ht 152.4 cm; Wt 56.7 kg
[~2017-05-21 12:25] MED LIST changes: +KEYTRUDA50 MG IV; +PREDNISONE20 MG PO
[2017-05-21 14:08] LABS: MCH 29.5 PG (29.0-34.0); MCHC 33.4 G/DL (30.0-36.0); MCV 88.4 FL (83-99); MEAN PLAT.VOLUME 9.2 uM^3 (9.5-12.4); PLATELET COUNT 245 K/uL (156-360); RBC DIS.WIDTH-CV 13.8 % (11.8-14.6); RBC DIS.WIDTH-SD 44.8 % (39-53); WHITE BLOOD COUNT 7.2 K/uL (4.1-10.2)
[2017-05-21 14:18] LABS: CHLORIDE 103 mEq/L (99-109); POTASSIUM 4.9 mEq/L (3.7-5.4); SODIUM 135 mEq/L (136-147)
[2017-05-21 14:19] LABS: GLUCOSE 317 mg/dL (70-99)
[2017-05-21 14:21] LABS: ANION GAP 12 MEQ/L (2-14)
[2017-05-21 14:23] LABS: GFR ESTIMATE (CALCULATED) 44 mL/min/
[2017-05-21 14:24] LABS: UREA NITROGEN (BUN) 14 mg/dL (9-23)
[2017-05-21 14:45] LABS: TROP-I INTERPRETATION NEGATIVE; TROPONIN-I < 0.01 ng/mL (0.0-0.30)
[2017-05-21 15:12] LABS: ADD MIUA? YES; BILIRUBIN NEGATIVE; BLOOD NEGATIVE; COLOR YELLOW ((YELLOW)); GLUCOSE (STRIP) >=500; KETONES NEGATIVE; LEUKOCYTES MODERATE; NITRITE NEGATIVE; PROTEIN (STRIP) NEGATIVE; SPECIFIC GRAVITY 1.014 (1.000-1.030); UROBILINOGEN 0.2 MG/DL (0.2-1.0)
[2017-05-21 15:22] LABS: BACTERIA NONE SEEN /HPF; CASTS NONE SEEN /LPF; CRYSTALS NONE SEEN; EPITHELIAL CELLS RARE /HPF; MUCUS NONE SEEN /LPF; RED BLOOD CELLS 0-5 /HPF (0-5); UCUL ADDED? NO; WHITE BLOOD CELLS 0-5 /HPF (0-5)
[2017-05-21 18:16] VITALS: BP 126/60
== END 2017-05-21 18:17 | disposition home or self-care (01) ==
LOC: EME 12:25
PROVIDERS: Physician Assistant
DX: R53.1 Weakness (principal); R06.00 Dyspnea, unspecified; C78.00 Secondary malignant neoplasm of unspecified lung; Z85.41 Personal history of malignant neoplasm of cervix uteri; J45.909 Unspecified asthma, uncomplicated; K21.9 Gastro-esophageal reflux disease without esophagitis; I10 Essential (primary) hypertension; E78.5 Hyperlipidemia, unspecified; E11.9 Type 2 diabetes mellitus without complications; F41.9 Anxiety disorder, unspecified; F32.9 Major depressive disorder, single episode, unspecified; Z87.891 Personal history of nicotine dependence
CPT/HCPCS: 71020; 71275; 80048; 81003; 84484; 85027; 93005; 99281; 99284

== ENCOUNTER 2017-07-17 11:26 | Inpatient (IN) | payer OTHER ==
[~2017-07-17] VITALS: Ht 152.4 cm; Wt 54.6 kg
[~2017-07-17 11:26] MED LIST changes: -LIPITOR20 MG PO; +LIPITOR40 MG PO
[2017-07-17 12:27] LABS: HEMATOCRIT 35.2 % (36.0-46.0); HEMOGLOBIN 12.2 G/DL (11.9-15.5); MCH 28.9 PG (29.0-34.0); MCHC 34.7 G/DL (30.0-36.0); MCV 83.4 FL (83-99); PLATELET COUNT 282 K/uL (156-360); RBC DIS.WIDTH-CV 13.7 % (11.8-14.6); RBC DIS.WIDTH-SD 40.7 % (39-53); RED BLOOD COUNT 4.22 M/uL (3.80-5.20); WHITE BLOOD COUNT 7.6 K/uL (4.1-10.2)
[2017-07-17 12:41] LABS: CHLORIDE 99 mEq/L (99-109); GLUCOSE 196 mg/dL (70-99); POTASSIUM 3.8 mEq/L (3.7-5.4); SODIUM 136 mEq/L (136-147)
[2017-07-17 12:45] LABS: CREATININE 1.8 mg/dL (0.6-1.3); GFR ESTIMATE (CALCULATED) 30 mL/min/
[2017-07-17 12:46] LABS: UREA NITROGEN (BUN) 21 mg/dL (9-23)
[2017-07-17 13:02] LABS: ALBUMIN 4.3 g/dL (3.2-4.8)
[2017-07-17 13:05] LABS: TOTAL PROTEIN 7.6 g/dL (6.4-8.3)
[2017-07-17 13:07] LABS: TOTAL BILIRUBIN 0.7 mg/dL (0.0-1.0)
[2017-07-17 13:08] LABS: ALKALINE PHOSPHATASE 228 IU/L (3-129)
[2017-07-17 13:10] LABS: AST (GOT) 35 IU/L (2-34); DIRECT BILIRUBIN 0.3 mg/dL (0.0-0.3)
[2017-07-17 13:11] LABS: ALT (GPT) 30 IU/L (3-49)
[2017-07-17 13:12] LABS: LIPASE 14 U/L (1.0-51.0)
[2017-07-17 15:19] LABS: APPEARANCE SL.HAZY ((CLEAR)); BILIRUBIN NEGATIVE; BLOOD NEGATIVE; GLUCOSE (STRIP) NEGATIVE; KETONES NEGATIVE; LEUKOCYTES LARGE; NITRITE NEGATIVE; PROTEIN (STRIP) 30; SPECIFIC GRAVITY 1.023 (1.000-1.030); UROBILINOGEN 0.2 MG/DL (0.2-1.0)
[2017-07-17 15:33] LABS: BACTERIA NONE SEEN /HPF; EPITHELIAL CELLS 1+ /HPF; HYALINE CASTS 20-30 /LPF; MUCUS TRACE /LPF; UCUL ADDED? YES; WHITE BLOOD CELLS 30-40 /HPF (0-5)
[2017-07-17 15:34] LABS: COLOR DK YELLOW ((YELLOW))
[2017-07-17] MEDS ORDERED: SPIRIVA RESPIMAT4 GM IH (16:22)
[2017-07-17] MEDS ORDERED: METFORMIN HCL750 MG PO (16:23)
[2017-07-17] MEDS ORDERED: GLIMEPIRIDE4 MG PO (16:25)
[2017-07-17] MEDS ORDERED: LISINOPRIL10 MG PO (16:28)
[2017-07-17] MEDS ORDERED: HYDROCHLOROTHIA25 MG PO (16:30)
[2017-07-17] MEDS ORDERED: NORCO 5/3251 TABLET PO (16:34)
[2017-07-17] MEDS ORDERED: ALBUTEROL2.5 MG/3 M IH (16:35)
[2017-07-17 19:57] VITALS: BP 121/80
[2017-07-18 00:13] VITALS: BP 110/76
[2017-07-18 04:08] VITALS: BP 106/64
[2017-07-18 07:13] LABS: BASOPHIL (%) 0.3 % (0-1); EOSINOPHIL (%) 6.1 % (0-5); EOSINOPHIL COUNT 0.2 K/uL (0-0.3); HEMATOCRIT 28.3 % (36.0-46.0); IMMATURE GRANULOCYTE (%) 0.5 % (0.0-0.7); LYMPHOCYTE (%) 22.1 % (15-42); LYMPHOCYTE COUNT 0.8 K/uL (1.0-2.8); MCH 28.7 PG (29.0-34.0); MCHC 33.2 G/DL (30.0-36.0); MCV 86.5 FL (83-99); MONOCYTE (%) 9.8 % (3-12); MONOCYTE COUNT 0.4 K/uL (0-0.8); NEUTROPHIL (%) 61.2 % (45-76); NEUTROPHIL COUNT 2.3 K/uL (1.8-6.4); RBC DIS.WIDTH-CV 13.9 % (11.8-14.6); RBC DIS.WIDTH-SD 43.6 % (39-53); WHITE BLOOD COUNT 3.8 K/uL (4.1-10.2)
[2017-07-18 07:14] LABS: CHLORIDE 110 MEQ/L (99-109); HEMOGLOBIN 9.4 G/DL (11.9-15.5); POTASSIUM 3.4 MEQ/L (3.7-5.4); RED BLOOD COUNT 3.27 M/uL (3.80-5.20); SODIUM 139 MEQ/L (136-147); UREA NITROGEN (BUN) 14 mg/dL (9-23)
[2017-07-18 07:17] LABS: ANISOCYTOSIS 1+; MICROCYTOSIS 1+; PLAT.SUFFICIENCY ADEQUATE; SCHISTOCYTES 1+; TEAR DROP CELLS 1+
[2017-07-18 07:20] LABS: CREATININE 1.1 MG/DL (0.6-1.3); GFR ESTIMATE (CALCULATED) 53 mL/min/; GLUCOSE 117 mg/dL (70-99); PLATELET COUNT 182 K/uL (156-360)
[2017-07-18 07:24] VITALS: BP 103/53
[2017-07-18 12:08] VITALS: BP 101/68
[2017-07-18 16:07] VITALS: BP 122/92
[2017-07-18 16:36] LABS: PHOSPHORUS 4.3 mg/dL (2.5-4.9)
[2017-07-18 16:57] LABS: INTACT PARATHYROID HORMONE 15 pg/mL (10-69)
[2017-07-18 20:00] VITALS: BP 126/69
[2017-07-19] VITALS (8 sets, daily range): BP systolic 87–129; BP diastolic 51–79
[2017-07-19 05:53] LABS: HEMATOCRIT 27.5 % (36.0-46.0); HEMOGLOBIN 8.8 G/DL (11.9-15.5); MCH 27.7 PG (29.0-34.0); MCV 86.5 FL (83-99); PLATELET COUNT 157 K/uL (156-360); RBC DIS.WIDTH-SD 44.7 % (39-53); RED BLOOD COUNT 3.18 M/uL (3.80-5.20); WHITE BLOOD COUNT 4.4 K/uL (4.1-10.2)
[2017-07-19 06:24] LABS: CHLORIDE 111 MEQ/L (99-109); CREATININE 1.1 MG/DL (0.6-1.3); GFR ESTIMATE (CALCULATED) 53 mL/min/; GLUCOSE 130 mg/dL (70-99); POTASSIUM 3.3 MEQ/L (3.7-5.4); SODIUM 140 MEQ/L (136-147); UREA NITROGEN (BUN) 8 mg/dL (9-23)
[2017-07-19 06:35] LABS: MAGNESIUM 0.8 mg/dl (1.3-2.7)
[2017-07-19 09:28] LABS: FERRITIN 47 NG/ML (10-291); IRON 22 MCG/DL (35-150); TRANSFERRIN (TIBC) 235.1 mg/dL (215-380); TRANSFERRIN SATUR. 9 % (20-55)
[2017-07-19 11:35] LABS: HEMOGLOBIN A1c (GLYCOHEMOGLOB) 10.1 % (Below 5.7)
[2017-07-20 03:51] VITALS: BP 126/58
[2017-07-20 05:32] LABS: HEMATOCRIT 27.8 % (36.0-46.0); MCH 27.7 PG (29.0-34.0); MCHC 32.4 G/DL (30.0-36.0); MCV 85.5 FL (83-99); PLATELET COUNT 178 K/uL (156-360); RBC DIS.WIDTH-CV 13.8 % (11.8-14.6); RBC DIS.WIDTH-SD 43.2 % (39-53); RED BLOOD COUNT 3.25 M/uL (3.80-5.20); WHITE BLOOD COUNT 3.9 K/uL (4.1-10.2)
[2017-07-20 06:09] LABS: CHLORIDE 108 MEQ/L (99-109); CREATININE 0.9 MG/DL (0.6-1.3); GFR ESTIMATE (CALCULATED) > 59 mL/min/; GLUCOSE 176 mg/dL (70-99); SODIUM 138 MEQ/L (136-147); UREA NITROGEN (BUN) 8 mg/dL (9-23)
[2017-07-20 06:11] LABS: MAGNESIUM 1.5 mg/dl (1.3-2.7); POTASSIUM 4.5 MEQ/L (3.7-5.4)
[2017-07-20 08:02] VITALS: BP 115/66
[2017-07-20 11:48] VITALS: BP 109/61
[2017-07-20 15:54] VITALS: BP 131/69
[2017-07-20 19:57] VITALS: BP 134/73
[2017-07-21 00:08] VITALS: BP 126/70
[2017-07-21 03:41] VITALS: BP 128/72
[2017-07-21 06:09] LABS: CHLORIDE 106 MEQ/L (99-109); CREATININE 0.9 MG/DL (0.6-1.3); GFR ESTIMATE (CALCULATED) > 59 mL/min/; GLUCOSE 232 mg/dL (70-99); POTASSIUM 3.6 MEQ/L (3.7-5.4); SODIUM 138 MEQ/L (136-147); UREA NITROGEN (BUN) 13 mg/dL (9-23)
[2017-07-21 06:11] LABS: BASOPHIL (%) 0.4 % (0-1); EOSINOPHIL (%) 0.9 % (0-5); HEMATOCRIT 24.5 % (36.0-46.0); IMMATURE GRANULOCYTE (%) 0.2 % (0.0-0.7); LYMPHOCYTE (%) 18.7 % (15-42); LYMPHOCYTE COUNT 0.9 K/uL (1.0-2.8); MCH 28.1 PG (29.0-34.0); MCHC 32.7 G/DL (30.0-36.0); MONOCYTE (%) 9.8 % (3-12); MONOCYTE COUNT 0.5 K/uL (0-0.8); NEUTROPHIL COUNT 3.2 K/uL (1.8-6.4); PLATELET COUNT 180 K/uL (156-360); RBC DIS.WIDTH-CV 14.2 % (11.8-14.6); RBC DIS.WIDTH-SD 44.4 % (39-53); RED BLOOD COUNT 2.85 M/uL (3.80-5.20); WHITE BLOOD COUNT 4.6 K/uL (4.1-10.2)
[2017-07-21 08:11] VITALS: BP 114/69
[2017-07-21 12:02] VITALS: BP 96/54
[2017-07-21 16:12] VITALS: BP 120/84
[2017-07-21 20:31] VITALS: BP 122/60
[2017-07-22 00:07] VITALS: BP 126/72
[2017-07-22 04:52] VITALS: BP 132/84
[2017-07-22 05:43] LABS: BASOPHIL (%) 0.4 % (0-1); EOSINOPHIL (%) 0.9 % (0-5); EOSINOPHIL COUNT 0.1 K/uL (0-0.3); HEMATOCRIT 24.9 % (36.0-46.0); HEMOGLOBIN 8.2 G/DL (11.9-15.5); IMMATURE GRANULOCYTE (%) 0.2 % (0.0-0.7); LYMPHOCYTE (%) 21.8 % (15-42); LYMPHOCYTE COUNT 1.2 K/uL (1.0-2.8); MCH 28.3 PG (29.0-34.0); MCHC 32.9 G/DL (30.0-36.0); MCV 85.9 FL (83-99); MONOCYTE (%) 9.7 % (3-12); MONOCYTE COUNT 0.5 K/uL (0-0.8); NEUTROPHIL COUNT 3.5 K/uL (1.8-6.4); PLATELET COUNT 202 K/uL (156-360); RBC DIS.WIDTH-CV 14.2 % (11.8-14.6); RBC DIS.WIDTH-SD 44.9 % (39-53); WHITE BLOOD COUNT 5.3 K/uL (4.1-10.2)
[2017-07-22 06:05] LABS: CHLORIDE 111 MEQ/L (99-109); CREATININE 0.9 MG/DL (0.6-1.3); GFR ESTIMATE (CALCULATED) > 59 mL/min/; GLUCOSE 130 mg/dL (70-99); POTASSIUM 3.5 MEQ/L (3.7-5.4); SODIUM 139 MEQ/L (136-147); UREA NITROGEN (BUN) 13 mg/dL (9-23)
[2017-07-22 08:12] VITALS: BP 153/67
[2017-07-22] MEDS ORDERED: CEFTIN500 MG PO (13:51)
[2017-07-22] MEDS ORDERED: LEVEMIR100 UNIT/2 SC (13:53)
[2017-07-22] MEDS ORDERED: GUAIFENESI100 MG/5 M PO (14:09)
== END 2017-07-22 16:15 | disposition home health service (06) | DRG 689 ==
LOC: EME 11:26 → EDOF 16:31 → 5SOUTH 16:31 → ENRESERV 16:44 → 5SOUTH 19:29
PROVIDERS: Internal Medicine
DX: N39.0 Urinary tract infection, site not specified (principal); N17.9 Acute kidney failure, unspecified; J96.10 Chronic respiratory failure, unspecified whether with hypoxia or hypercapnia; E78.5 Hyperlipidemia, unspecified; J15.9 Unspecified bacterial pneumonia; K21.9 Gastro-esophageal reflux disease without esophagitis; I10 Essential (primary) hypertension; J44.1 Chronic obstructive pulmonary disease with (acute) exacerbation; R16.0 Hepatomegaly, not elsewhere classified; D64.9 Anemia, unspecified; E83.42 Hypomagnesemia; E87.6 Hypokalemia; R63.0 Anorexia; E11.9 Type 2 diabetes mellitus without complications; C34.90 Malignant neoplasm of unspecified part of unspecified bronchus or lung; E27.40 Unspecified adrenocortical insufficiency; E83.52 Hypercalcemia; Z86.718 Personal history of other venous thrombosis and embolism; Z86.711 Personal history of pulmonary embolism; Z99.81 Dependence on supplemental oxygen; Z87.891 Personal history of nicotine dependence; Z68.23 Body mass index [BMI] 23.0-23.9, adult; Z80.49 Family history of malignant neoplasm of other genital organs; R11.2 Nausea with vomiting, unspecified; R63.4 Abnormal weight loss; R53.1 Weakness; E86.1 Hypovolemia; Z85.41 Personal history of malignant neoplasm of cervix uteri
CPT/HCPCS: 71046; 74176; 80048; 80076; 81003; 82272; 82306; 82728; 82948; 83036; 83540; 83690; 83735; 83970; 84100; 84466; 85025; 85027; 87040; 87086; 87449; 87502; 87641; 93005; 94640 76; 97530 GO; 99281; 99285; J0696; J1650; J1815; J2405; J3475; J3489; J7030; J7050; J7512